=== PATIENT | female | born 1980 | race Two or more races ===

== ENCOUNTER 2017-09-14 13:09 | Inpatient (IN) | payer MEDICAID ==
[2017-09-14 13:43] LABS: ADD MAN DIFF? NO
[2017-09-14 13:46] LABS: BASOPHILS % 0.2 % (0.0-2.0); EOSINOPHILS % 0.2 % (0.0-7.0); HEMATOCRIT 34.8 % (37.0-47.0); HEMOGLOBIN 11.8 g/dl (12.0-16.0); LYMPHOCYTES # 1.6 10^3/ul (0.8-2.9); LYMPHOCYTES % 9.6 % (15.0-51.0); MEAN CORPUSCULAR HEMOGLOBIN 28.6 pg (29.0-33.0); MEAN CORPUSCULAR HGB CONC 33.9 g/dl (32.0-37.0); MEAN CORPUSCULAR VOLUME 84.5 fl (82.0-101.0); MEAN PLATELET VOLUME 12.4 fl (7.4-10.4); MONOCYTE # 0.6 10^3/ul (0.3-0.9); MONOCYTES % 3.6 % (0.0-11.0); NEUTROPHIL # 14.2 10^3/ul (1.6-7.5); NEUTROPHILS % 85.8 % (39.0-77.0); PLATELET COUNT 126 10^3/UL (140-415); RED BLOOD COUNT 4.12 10^6/ul (4.20-5.40); RED CELL DISTRIBUTION WIDTH 13.7 % (11.5-14.5)
[2017-09-14 13:46] LABS: WHITE BLOOD COUNT 16.5 10^3/ul (4.8-10.8)
[2017-09-14] MEDS ORDERED: LABETALOL HCL 20MG INJ (13:52)
[2017-09-14] MEDS ORDERED: LABETALOL 200 MG TAB GTB (14:00)
[2017-09-14] MEDS ORDERED: MISOPROSTOL 200 MCG TAB PR ×2 (14:00→19:00)
[2017-09-14] MEDS ORDERED: LIDOCAINE 1% (MPF) 30 ML INJ INJ (14:00)
[2017-09-14] MEDS ORDERED: OXYTOCIN 30 UNITS/LR 500 ML IV ×2 (14:00→19:00)
[2017-09-14] MEDS ORDERED: CARBOPROST 250 MCG INJ IM ×2 (14:00→19:00)
[2017-09-14] MEDS ORDERED: METHYLERGONOVINE 0.2 MG INJ IM ×2 (14:00→19:00)
[2017-09-14 14:17] LABS: INR 0.92; PROTIME 12.4 Sec (11.9-14.9)
[2017-09-14 14:18] LABS: PARTIAL THROMBOPLASTIN TIME 23.9 Sec (25.0-35.0)
[2017-09-14 14:24] LABS: ALANINE AMINOTRANSFERASE 31 IU/L (13-69); ALBUMIN 3.4 g/dl (3.3-4.9); ALBUMIN/GLOBULIN RATIO 1.06; ALKALINE PHOSPHATASE 93 IU/L (42-121); ANION GAP 17 (8-16); ASPARTATE AMINO TRANSFERASE 22 IU/L (15-46); BILIRUBIN,INDIRECT 0.1 mg/dl (0-1.1); BILIRUBIN,TOTAL 0.1 mg/dl (0.2-1.3); BLOOD UREA NITROGEN 17 mg/dl (7-20); CALCIUM 9.6 mg/dl (8.4-10.2); CARBON DIOXIDE 18 mmol/L (21-31); CHLORIDE 107 mmol/L (97-110); CREATININE 0.55 mg/dl (0.44-1.00); GLUCOSE 244 mg/dl (70-220); SODIUM 138 mmol/L (135-144); TOTAL PROTEIN 6.6 g/dl (6.1-8.1); URIC ACID 5.7 mg/dl (3.1-7.9)
[2017-09-14] MEDS: LABETALOL HCL 20MG INJ IV (14:26)
[2017-09-14] MEDS: LABETALOL 100 MG TAB GTB ×2 (14:37→20:48)
[2017-09-14] MEDS: MAGNESIUM SULFATE 4 GM/100 ML 100 ML IVPB (15:07)
[2017-09-14] MEDS: OXYTOCIN 30 UNITS/LR 500 ML IV ×2 (15:13→15:15)
[2017-09-14 15:31] LABS: HEPATITIS B SURFACE ANTIGEN NEGATIVE (NEGATIVE)
[2017-09-14] MEDS: MAGNESIUM SULFATE 20 GM/500 ML 500 ML IV (15:38)
[2017-09-14] MEDS ORDERED: ZOLPIDEM 5 MG TAB PO (19:00)
[2017-09-14] MEDS ORDERED: OXYCODONE/ASPIRIN (4.88/325) TAB PO (19:00)
[2017-09-14] MEDS ORDERED: SENNA/DOCUSATE NA (8.6MG/50MG) TAB PO (19:00)
[2017-09-14 20:17] LABS: ADD UMIC YES; UR ASCORBIC ACID NEGATIVE (NEGATIVE); UR BACTERIA FEW /HPF (NONE SEEN); UR BILIRUBIN (Dip) NEGATIVE (NEGATIVE); UR BLOOD (Dip) 3+ mg/dL (NEGATIVE); UR CLARITY CLOUDY (CLEAR); UR COLOR YELLOW (YELLOW); UR GLUCOSE (Dip) 3+ mg/dL (NEGATIVE); UR KETONES (Dip) NEGATIVE (NEGATIVE); UR LEUKOCYTE ESTERASE (Dip) NEGATIVE Leu/ul (NEGATIVE); UR MUCUS FEW /HPF (NONE SEEN); UR NITRITE (Dip) NEGATIVE (NEGATIVE); UR RBC > 182 /HPF (0-5); UR SPECIFIC GRAVITY (Dip) 1.023 (1.003-1.030); UR TOTAL PROTEIN (Dip) 2+ mg/dl (NEGATIVE); UR UROBILINOGEN (Dip) NEGATIVE (NEGATIVE); UR WBC 37 /HPF (0-5)
[2017-09-14 20:38] LABS: AMPHETAMINE/METHAMPHETAMINE Positive (NEGATIVE); BARBITURATES Negative (NEGATIVE); BENZODIAZEPINES Negative (NEGATIVE); CANNABINOIDS Negative (NEGATIVE); COCAINE Negative (NEGATIVE); OPIATES Negative (NEGATIVE)
[2017-09-14] MEDS: WITCH HAZEL/GLYCERIN PAD PR (20:48)
[2017-09-14] MEDS: SENNA/DOCUSATE NA (8.6MG/50MG) TAB PO (20:48)
[2017-09-14] MEDS: LANOLIN 7 GM TUBE TOP (20:49)
[2017-09-14] MEDS: BENZOCAINE 20% 56 ML SPRAY TOP (20:50)
[2017-09-14 22:21] LABS: RAPID PLASMA REAGIN NONREACTIVE (NR)
[2017-09-14] MEDS: LACTATED RINGER'S 1,000 ML IV (22:28)
[2017-09-14] MEDS: IBUPROFEN 600 MG TAB PO (23:20)
[2017-09-15 01:17] LABS: MAGNESIUM 3.4 mg/dl (1.7-2.5)
[2017-09-15] MEDS: MAGNESIUM SULFATE 20 GM/500 ML 500 ML IV ×3 (02:51→21:00)
[2017-09-15] MEDS: IBUPROFEN 600 MG TAB PO ×2 (06:20→12:19)
[2017-09-15] MEDS: SENNA/DOCUSATE NA (8.6MG/50MG) TAB PO ×2 (09:00→21:00)
[2017-09-15] MEDS: LABETALOL 100 MG TAB GTB ×2 (09:00→21:00)
[2017-09-15 10:07] LABS: ADD MAN DIFF? NO
[2017-09-15 10:11] LABS: WHITE BLOOD COUNT 11.6 10^3/ul (4.8-10.8)
[2017-09-15 10:11] LABS: BASOPHILS % 0.3 % (0.0-2.0); EOSINOPHILS # 0.1 10^3/ul (0.0-0.5); HEMATOCRIT 31.4 % (37.0-47.0); HEMOGLOBIN 10.4 g/dl (12.0-16.0); LYMPHOCYTES # 2.6 10^3/ul (0.8-2.9); LYMPHOCYTES % 22.7 % (15.0-51.0); MEAN CORPUSCULAR HEMOGLOBIN 28.5 pg (29.0-33.0); MEAN CORPUSCULAR HGB CONC 33.1 g/dl (32.0-37.0); MEAN PLATELET VOLUME 12.4 fl (7.4-10.4); MONOCYTE # 0.6 10^3/ul (0.3-0.9); MONOCYTES % 5.4 % (0.0-11.0); NEUTROPHIL # 8.1 10^3/ul (1.6-7.5); NEUTROPHILS % 70.1 % (39.0-77.0); PLATELET COUNT 119 10^3/UL (140-415); RED BLOOD COUNT 3.65 10^6/ul (4.20-5.40)
[2017-09-15 10:34] LABS: ALANINE AMINOTRANSFERASE 29 IU/L (13-69); ALBUMIN 2.7 g/dl (3.3-4.9); ALKALINE PHOSPHATASE 74 IU/L (42-121); ANION GAP 14 (8-16); ASPARTATE AMINO TRANSFERASE 18 IU/L (15-46); BLOOD UREA NITROGEN 13 mg/dl (7-20); CALCIUM 8.3 mg/dl (8.4-10.2); CARBON DIOXIDE 24 mmol/L (21-31); CHLORIDE 102 mmol/L (97-110); CREATININE 0.59 mg/dl (0.44-1.00); GLUCOSE 195 mg/dl (70-220); POTASSIUM 4.4 mmol/L (3.5-5.1); SODIUM 136 mmol/L (135-144); TOTAL PROTEIN 5.4 g/dl (6.1-8.1)
[2017-09-15 10:35] LABS: MAGNESIUM 3.8 mg/dl (1.7-2.5)
[2017-09-15 11:31] LABS: HEMOGLOBIN A1C 8.2 % (0-5.9)
[2017-09-15 12:25] LABS: MAGNESIUM 3.7 mg/dl (1.7-2.5)
[2017-09-15] MEDS: metFORMIN 500 MG TAB PO ×2 (13:00→17:57)
[2017-09-15] MEDS ORDERED: DEXTROSE 50% 50 ML SYRINGE IV ×2 (13:00)
[2017-09-15] MEDS ORDERED: GLUCAGON 1 MG INJ IM (13:00)
[2017-09-15] MEDS ORDERED: GLUCOSE GEL 15 GRAM TUBE BUCCAL (13:00)
[2017-09-15] MEDS ORDERED: GLUCOSE GEL 15 GRAM TUBE PO ×2 (13:00)
[2017-09-15] MEDS: INSULIN GLARGINE [LANtus] 3 ML PEN SC (16:47)
[2017-09-15] MEDS: INSULIN ASPART [NOVOLOG] 3 ML PEN SC ×2 (17:59→21:00)
[2017-09-16] MEDS: ACCU-CHEK XX (02:00)
[2017-09-16] MEDS: MAGNESIUM SULFATE 20 GM/500 ML 500 ML IV (07:00)
[2017-09-16] MEDS: INSULIN ASPART [NOVOLOG] 3 ML PEN SC ×2 (08:05→12:48)
[2017-09-16] MEDS: metFORMIN 500 MG TAB PO (08:12)
[2017-09-16] MEDS: INSULIN GLARGINE [LANtus] 3 ML PEN SC (08:15)
[2017-09-16] MEDS: SENNA/DOCUSATE NA (8.6MG/50MG) TAB PO (08:51)
[2017-09-16] MEDS: LABETALOL 100 MG TAB GTB (08:52)
[2017-09-16] MEDS: DIPHTH/TET/ACEL PERTUSS (ADULT) 0.5 ML VIAL IM* (09:00)
== END 2017-09-16 16:11 | disposition home or self-care (01) | DRG 774 ==
LOC: L-D 13:09 → PP1 15:15
PROC: 10E0XZZ Delivery of Products of Conception, External Approach (ICD-10-PCS; principal; 2017-09-14)
DX: Z39.0 Encounter for care and examination of mother immediately after delivery (principal); O11.5 Pre-existing hypertension with pre-eclampsia, complicating the puerperium; O24.93 Unspecified diabetes mellitus in the puerperium; E11.65 Type 2 diabetes mellitus with hyperglycemia; O10.03 Pre-existing essential hypertension complicating the puerperium; O99.215 Obesity complicating the puerperium; E66.01 Morbid (severe) obesity due to excess calories
CPT/HCPCS: 59414; 80053; 80307; 81001; 82962; 83036; 83735; 84560; 85025; 85610; 85730; 86592; 86850; 86900; 86901; 87340; 88307

== ENCOUNTER 2017-12-08 14:23 | Emergency (ER) | payer MEDICAID | END 2017-12-08 16:26 | disposition home or self-care (01) | LOC: FTE 14:23 | DX: H92.02 Otalgia, left ear (principal) | CPT/HCPCS: 99283; Z7502 ==